=== PATIENT | female | born 1990 | race Caucasian/White ===

== ENCOUNTER 2018-09-28 09:22 | Emergency (ER) | payer OTHER ==
[~2018-09-28] VITALS: Ht 170.2 cm; Wt 114.8 kg
[~2018-09-28 09:22] MED LIST: DOCU-299 PO; FERR-212 PO; PREN-385 PO
[2018-09-28 09:28] VITALS: BP 136/93
--- NOTE | 2018-09-28 09:40 | NUR ---
COUGH X 3 DAYS PRODUCTIVE PHLEGM GREEN COLOR PER PATIENT, BODY ACHES, RHINORRHEA AND JOLLY X 3 DAYS. CHILLS NO FEVERS, NAUSEA , NO VOMITING. PATIENT POSITIONED FOR COMFORT IN BED, BED IN LOW LOCKED POSITION. MD MADE AWARE OF STATUS. MED HX: NONE ALLERGIES : NO
--- NOTE | 2018-09-28 09:52 | NUR ---
COLLECTED FLU SWAP AND STREPT SWAB AT THIS TIME. PATIENT TOLERATED WELL.
--- NOTE | 2018-09-28 10:32 | NUR ---
Yao blake in [facility] - 09/28/18 at 1050 by YEYO PATIENT BEING TAKEN IN WHEELCHAIR BY HOG RIBBER.
--- NOTE | 2018-09-28 10:50 | NUR ---
DR LAURENT AT BEDSIDE.
[2018-09-28 11:15] VITALS: BP 130/90
--- NOTE | 2018-09-28 11:15 | NUR ---
Patient discharged with v/s stable. Written and verbal after care instructions given and explained. Patient alert, oriented and verbalized understanding of instructions. Ambulatory with steady gait. All questions addressed prior to discharge. ID band removed. Patient advised to follow up with PMD. Rx of PROMETHAZINE HYDROCHLORIDE SYRUP, AZITHROMYCIN 250MG given. Patient educated on indication of medication including possible reaction and side effects. Opportunity to ask questions provided and answered.
== END 2018-09-28 11:15 | disposition home or self-care (01) ==
LOC: MED 09:22
DX: J02.8 Acute pharyngitis due to other specified organisms (principal); B96.89 Other specified bacterial agents as the cause of diseases classified elsewhere; Z79.899 Other long term (current) drug therapy
CPT/HCPCS: 36415; 87081; 87804; 99283